=== PATIENT | female | born 1940 | race Caucasian/White ===

== ENCOUNTER 2016-09-12 12:02 | Day surgery (SDC) | payer MEDICARE, OTHER ==
--- NOTE | 2016-09-11 12:53 | PCM.HPANE ---
Patient Data Surgeon Admitting Provider: Attending Provider:Houston Wen MD Primary Care Physician:Yennifer Underwood MD Other Provider:Chelly Ashley Anesthesia Reason for Visit Colon Cancer Screening Ht/WT & BMI Body Mass Index Allergies Coded Allergies: Tetracyclines (Verified Allergy, Unknown, 09/12/16) clindamycin (Verified Allergy, Unknown, 09/12/16) sulfamethoxazole (Verified Allergy, Unknown, 09/12/16) trimethoprim (Verified Allergy, Unknown, 09/12/16) Past Anesthesia History Anesthesia History: Denies:: Abnormal Airway, Anesthesia Reactions, Difficult Intubation, Fam Anesthesia Reaction, Fam Malignant Hypertherm, Malignant Hyperthermia Medications Reported Medications Calcium Carbonate (Calcium)600 Mg [id number] Mg PO 09/12/16 Metronidazole (Metronidazole Gel)1 Applic/0.25 Gm Gel1 Applic TOP BID #45 GM Ref 0 09/12/16 Ascorbic Acid (Vitamin C)500 Mg Capsule.er500 Mg PO 09/12/16 Cholecalciferol (Vitamin D3) (Vitamin D3)2,000 Unit Capsule2,000 Unit PO 09/12/16 Multivitamin (Multi Vitamin Daily)1 Each Tablet1 Each PO DAILY 30 Days Ref 0 09/12/16 Methylcellulose (Citrucel)500 Mg [id number] Mg PO 09/12/16 Ranitidine 150 Mg Ltyoqhs289 Mg PO BID Ref 0 09/11/16 Promethazine 25 Mg Sfidkj95 Mg PO HS PRN Insomnia Ref 0 09/11/16 Oxycodone HCl/Acetaminophen 5-325 (Endocet 5-325)1 Each Tablet1 Tablet PO Q4H PRN For Pain 09/11/16 Cyclobenzaprine 10 Mg Jwsjzx28 Mg PO DAILY PRN Spasm Ref 0 09/11/16 Aspirin 81 Mg Hcgaox10 Mg PO DAILY Ref 0 09/11/16 History History of ENT Problems?: Yes HEENT History: Denies:: Abnormal Airway Cataracts Difficult Intubation Dysphagia Glaucoma Hearing Problem Sinus Problem TMJ Denture Type: None Teeth Condition: Within Normal Limits Hx of Heart Problems?: Yes Cardiovascular History: Denies:: AICD Abdominal Aortic Aneurism Atrial Fibrillation Cardiac Surgery Chest Pain Congestive Heart Failure Coronary Artery Disease Edema Heart Murmur Hypertension Irregular Heartbeat Pacemaker Peripheral Vascular Rheumatic Fever Thrombophlebitis Valvular Heart Disease Hx of Respiratory Problem?: Yes Respiratory History: Denies:: Asthma COPD Chest Surgery Cough Dyspnea Emphysema Hemoptysis Oxygen Administration Pneumonia Pulmonary Embolism Tuberculosis Use of C-PAP Machine Use of Inhalers / NEBS Hx Neurologic Problems?: Yes Neurological History: Denies:: Alzheimer's Disease CVA Dementia Dizziness Headaches Multiple Sclerosis Parkinson's Disease Peripheral Neuropathy Seizures TIA Hx of GI Problems?: Yes Gastrointestinal History: Denies:: Cirrhosis Diverticulitis Gall Bladder Disease Gastroesphageal Reflux Gastrointestinal Bleeding Heartburn Hepatitis Hiatal Hernia Liver Disease Rectal Bleeding Hx of Problems?: Yes Genitourinary History: Denies:: HX of Hemodialysis Kidney Stones Urinary Tract Infection HX of Peritoneal Dialysis: Yes Female Hx: Denies:: Currently Endometriosis Pelvic Inflammatory Problems with Breasts? Skin History: Denies:: History Skin Disorders? Pressure Ulcers Hx Musculoskeletal Problems?: Yes Musculoskeletal History: Denies:: Back Injury Degenerative Joint Fibromyalgia Joint Replacement Musculoskeletal Trauma Myasthenia Gravis Osteoarthritis Rheumatoid Arthritis Systemic Lupus Hx of Psycho/Social Problems?: Yes Psycho Social History: Denies:: Anxiety Bipolar Disorder Hx Depression Suicide Attempt Hx Surgeries?: Yes Stop/Bang Risk Assessment Category Category 1A: Patient has history of documented sleep apnea, and HAS NOT received any narcotic, sedative or anesthesia administration during this stay. Category 1B: Patient has history of documented sleep apnea, and HAS received any narcotic , sedative or anesthesia administration during this stay Category 2: Patient has SUSPECTED Obstructive Sleep Apnea, and HAS received any narcotic , sedative or anesthesia administration during this stay. Category 3: Patient has SUSPECTED Obstructive Sleep Apnea and HAS NOT received narcotic, sedative or anesthesia administration during this stay. Category 4: Outpatient in Procedural Areas with known sleep apnea or who screen positive for High Risk via the STOP/BANG questionnaire. Exam Exam General Appearance: Alert HEENT/AIRWAY: MP 1 Lungs: Clear to Auscultation Heart: Exam Unremarkable Plan Impression Patient chart reviewed, patient interviewed and anesthestic plan with risks, benefits, and alternatives discussed, and informed consent obtained. ASA Physical Status: ASA2 Mod Systemic Disease Anesthetic Plan: GA Bene/Risks/Altern/Consents: Yes HP Complete Prior to Induction: Yes Gerardo Aparicio MD Sep 11, 2016 12:52
[~2016-09-12] VITALS: Ht 170.2 cm; Wt 62.0 kg
[~2016-09-12 12:02] MED LIST: ASPI-973 PO; CYCL10TA9 PO; Lactated Ringer's 1,000 ML IV ONE; OXYC-407 PO; PROM25TA14 PO; RANI150C4 PO
[2016-09-12] MEDS ORDERED: Propofol 10,000 mCg/mL 20 mL Inj ONE (12:03)
[2016-09-12] MEDS ORDERED: fentaNYL-PF 50 mCg/mL 2 mL Inj ONE (12:03)
[2016-09-12 12:20] VITALS: BP 148/90; PULSE 104; RESP 16; O2SAT 97
[2016-09-12] MEDS ORDERED: CHOL200047 PO (12:22)
[2016-09-12] MEDS ORDERED: CALC600T12 PO (12:22)
[2016-09-12] MEDS ORDERED: MULT-1018 PO (12:22)
[2016-09-12] MEDS ORDERED: METR45GE TOP (12:22)
[2016-09-12] MEDS ORDERED: METH500T5 PO (12:22)
[2016-09-12] MEDS ORDERED: ASCO500C6 PO (12:22)
[2016-09-12] MEDS ORDERED: Ondansetron 2 mg/mL 2 mL Inj IVPUSH PRN (12:35)
[2016-09-12] MEDS ORDERED: Lactated Ringer's 1,000 ML IV SCH (12:35)
[2016-09-12] MEDS ORDERED: MetoCLOpramide 5 mg/mL 2 mL Inj IVPUSH PRN (12:35)
[2016-09-12 12:59] VITALS: BP 98/63; PULSE 87; RESP 16; O2SAT 98
--- NOTE | 2016-09-12 13:06 | PCM.ANEP1 ---
Post Anesthesia PACU Phase 1 Assessment Vital Signs Vital Signs Date Time Temp Pulse Resp B/P Pulse Ox O2 Delivery O2 Flow Rate FiO2 09/12/16 12:59 87 16 98/63 98 Room Air 09/12/16 12:20 37.2 104 16 148/90 97 Room Air Anesthetic Administered: GA Level of Alertness: Awake, talking BUSTAMANTE's with Equal Strength: Yes Pain: No Nausea or Vomiting: No CV Function & Hydration Stable: Yes Airway Device: Oxygen Delivery: Room Air Lungs: Normal Air Movement PACU Phase 2 Assessment Complications: No Follow up Care: No Patient Instructions Provided: N/A Gerardo Aparicio MD Sep 12, 2016 13:06
[2016-09-12 13:09] VITALS: BP 104/65; PULSE 86; RESP 16; O2SAT 97
[2016-09-12 13:15] VITALS: BP 103/64; PULSE 80; RESP 16; O2SAT 94
--- NOTE | 2016-09-12 14:29 | ENDO ---
[address] [address] ENDOSCOPY PROCEDURE PATIENT: YARED MORENO : 1940 MR#: [id number] ADMIT: 09/12/2016 JOB ID: [id number] DATE OF SERVICE: 09/12/2016 TYPE OF OPERATION: Colonoscopy with biopsy. PREOPERATIVE DIAGNOSIS(ES): Constipation. POSTOPERATIVE DIAGNOSIS(ES): 1. Small internal hemorrhoids. 2. Mild erythema seen in the cecum, status post biopsy. ANESTHESIA: Monitored anesthesia care. COMPLICATIONS: None. BLOOD LOSS: Minimal. DESCRIPTION OF PROCEDURE: After risks and benefits explained to the patient informed consent was obtained. After anesthesia administered, colonoscope was then inserted from the rectum to the cecum. Mucosa carefully examined. Prep of the patient was fair. After the procedure was done, the scope withdrawn, procedure terminated. FINDINGS: Upon inspection of the anus, no masses, hemorrhoids, ulcers, or fissures that were seen. Throughout the entire examination, there were no polyps or masses. There was mild erythema seen in the cecum which was biopsied. Retroflexion revealed small internal hemorrhoids. IMPRESSION: 1. Small internal hemorrhoids. 2. Mild erythema in the cecum. RECOMMENDATION: Await pathology results. Follow up in GI clinic with referring provider as needed.
--- NOTE | 2016-09-13 13:59 | PATH ---
SURGICAL PATHOLOGY Attending Physician:Houston Wen MD CASE STATUS: Signed Out PATIENT NAME: YARED MORENO PID: [id number] : 1940 DATE COLLECTED:09/12/2016 22:10 SPECIMEN: Colon, Biopsy CLINICAL HISTORY: ERYTHEMA 1). CECUM FINAL DIAGNOSIS: 1.BIOPSY, CECUM: FRAGMENTS OF COLON MUCOSA WITH FOCAL NONSPECIFIC MUCOSAL HYPEREMIA, NEGATIVE FOR SIGNIFICANT INFLAMMATION. Negative for evidence of neoplasm. ICD10 K63.9 GROSS DESCRIPTION: Received in formalin, labeled with the patient' s name and "cecum", are two fragments of petersen, soft tissue measuring 0.3 x 0.2 x 0.1 cm to 0.5 x 0.3 x 0.2 cm. The fragments are completely submitted in cassette 1A. [id number]) MICRO DESCRIPTION: See diagnosis. ICD-9 CODES: CPT CODES: 1: 77661 Electronically Signed Out Vadim Gil MD [facility] [address], [place] [address] Technical component performed at [facility], [address], [place], [address]
== END 2016-09-12 23:59 | disposition home or self-care (01) ==
LOC: END 12:02
PROVIDERS: ATTEND Internal Medicine Gastroenterology
DX: Z12.11 Encounter for screening for malignant neoplasm of colon (principal); K64.8 Other hemorrhoids; G47.33 Obstructive sleep apnea (adult) (pediatric); G47.00 Insomnia, unspecified; G25.81 Restless legs syndrome; K21.9 Gastro-esophageal reflux disease without esophagitis; G47.61 Periodic limb movement disorder; K59.00 Constipation, unspecified
CPT/HCPCS: 45380; J2250; J3010; J7120